=== PATIENT | male | born 1995 | race Caucasian/White ===

== ENCOUNTER 2018-05-18 19:58 | Emergency (ER) | payer BC ==
[2018-05-18 20:05] VITALS: BP 131/77
--- NOTE | 2018-05-18 20:21 | ED ---
GI/ HPI - HPI Summary HPI Summary: 22 yr old male with one day of dysuria, and he feels his urethra may be a little red. No discharge or drainage. No testicular pain or swelling. The patient states he had sex with condom 3 weeks ago but it broke. He thinks he may have chlamydia. - History of Current Complaint Chief Complaint: [facility] Time Seen by Provider: 05/18/18 20:07 Stated Complaint: STI SCREENING Pain Intensity: 3 - Allergy/Home Medications Allergies/Adverse Reactions: Allergies Allergy/AdvReac Type Severity Reaction Status Date / Time No Known Allergies Allergy Verified 05/18/18 20:04 Home Medications: Home Medications NK [No Home Medications Reported] 05/18/18 [History Confirmed 05/18/18] PMH/Surg Hx/FS Hx/Imm Hx Infectious Disease History: No Infectious Disease History: Denies: Traveled Outside the [place] in Last 30 Days - Family History Known Family History: Positive: Other - postitive for URI - Social History Occupation: Employed Full-time Alcohol Use: None Substance Use Type: Reports: None Smoking Status (MU): Light Every Day Tobacco Smoker Amount Used/How Often: VAPE Review of Systems Constitutional: Negative Negative: Abdominal Pain Positive: burning, dysuria. Negative: discharge, flank pain, hematuria, incontinence, urgency All Other Systems Reviewed And Are Negative: Yes Physical Exam Triage Information Reviewed: Yes Vital Signs On Initial Exam: Initial Vitals Temp Pulse Resp BP Pulse Ox 98.2 F 87 16 131/77 100 05/18/18 20:01 05/18/18 20:01 05/18/18 20:01 05/18/18 20:01 05/18/18 20:01 Vital Signs Reviewed: Yes Appearance: Positive: Well-Appearing, No Pain Distress Skin: Positive: Warm, Skin Color Reflects Adequate Perfusion Head/Face: Positive: Normal Head/Face Inspection Eyes: Positive: EOMI, JESSICA Diagnostics - Vital Signs Vital Signs Temp Pulse Resp BP Pulse Ox 05/18/18 20:01 98.2 F 87 16 131/77 100 - Laboratory Lab Statement: Any lab studies that have been ordered have been reviewed, and results considered in the medical decision making process. GIGU Course/Dx - Course Course Of Treatment: 22 yr old male with symptoms of urethritis, and he feels he was exposed to chlamydia. He asks to be treated and I will give rocephin, zithromax now. Trichomonas vaginalis is pending. - Diagnoses Provider Diagnoses: Urethritis Discharge - Sign-Out/Discharge Documenting (check all that apply): Patient Departure All imaging exams completed and their final reports reviewed: No Studies - Discharge Plan Condition: Good Disposition: HOME Patient Education Materials: Nonspecific Urethritis in Men (ED) Referrals: No Primary Care Phys,NOPCP [Primary Care Provider] - [facility] [place] [facility] REFERR[facility] [Outside] - 2 Days - Billing Disposition and Condition Condition: GOOD Disposition: Home
[2018-05-18] MEDS: Azithromycin TAB* 250 MG PO ONE (20:47)
[2018-05-18] MEDS: cefTRIAXone VIAL(*) 250 MG VIAL IM ONE (20:48)
[2018-05-18] MEDS: Lidocaine 1%* 5 ML VIAL INJ ONE (20:49)
[2018-05-20 12:54] LABS: Neisseria gonorrhoeae (GC) RNA Negative (Negative)
[2018-05-22 21:38] LABS: Trichomonas vaginalis SOURCE: Urine (Male Patient)
== END 2018-05-18 21:00 | disposition home or self-care (01) ==
LOC: UCEAST 19:58
DX: N34.2 Other urethritis (principal)
CPT/HCPCS: 81003; 87491; 87591; 87661; 96372; 99212; A9270-GY; G0463; J0696